=== PATIENT | male | born 1995 | race Two or more races ===

== ENCOUNTER 2018-02-22 17:21 | Emergency (ER) | payer MEDICAID, OTHER ==
[~2018-02-22] VITALS: Ht 177.8 cm; Wt 72.6 kg
[2018-02-22 17:34] VITALS: BP 111/75
[2018-02-22] MEDS ORDERED: Lidocaine 2% Visc 15ml soln ORAL ONE (18:00)
[2018-02-22] MEDS ORDERED: Mylanta II UD 30ml ORAL ONE (18:00)
[2018-02-22] MEDS ORDERED: Dicyclomine HCl 10mg/5ml oral soln ORAL ONE (18:00)
--- NOTE | 2018-02-22 18:51 | Emergency Room Report ---
History of Present Illness General Chief Complaint: Nausea, Vomiting, and Diarrhea Source: Patient Present Illness HPI 22 YO Male presents to the ED C/O 03/17 in severity abdominal pain cramping in nature with associated nausea, vomiting and diarrhea. He denies blood in the vomit or stools, he denies fevers, chills, or recent travel. Patient reports one ill contact at work. Denies dysuria, blood in the urine, denies tenderness to the abdomen.Denies CP, Palpitations, LOC, AMS, dizziness, Changes in Vision, Sensation, paresthesias, or a sudden severe headache. Allergies: Coded Allergies: No Known Allergies (Unverified , 02/22/18) Patient History Past Medical History: see triage record Past Surgical History: none Pertinent Family History: none Reviewed Nursing Documentation: PMH: Agreed; PSxH: Agreed Nursing Documentation-PMH Past Medical History: No Stated History Review of Systems All Other Systems: negative except mentioned in HPI Physical Exam Vital Signs Date Time Temp Pulse Resp B/P (MAP) Pulse Ox O2 Delivery O2 Flow Rate FiO2 02/22/18 17:25 98.0 89 20 110/75 96 Room Air 98.1 Sp02 EP Interpretation: reviewed, normal General Appearance: no apparent distress, alert, GCS 15, non-toxic Head: normocephalic, atraumatic Eyes: bilateral eye normal inspection, bilateral eye PERRL ENT: hearing grossly normal, normal voice Neck: full range of motion Respiratory: chest non-tender, lungs clear, normal breath sounds, speaking full sentences Cardiovascular #1: regular rate, rhythm, no edema Gastrointestinal: normal bowel sounds - hyperactive BS in all 4 quadrants., non tender, soft, non-distended, no guarding Rectal: deferred Genitourinary: normal inspection Musculoskeletal: back normal, gait/station normal, normal range of motion, non- tender Neurologic: alert, oriented x3, responsive, sensory intact, normal gait, speech normal, grossly normal Psychiatric: judgement/insight normal Skin: normal color, no rash, warm/dry, well hydrated Lymphatic: no adenopathy Medical Decision Making PA Attestation Dr. Rodriguez is my supervising Physician whom patient management has been discussed with. Diagnostic Impression: Primary Impression: Nausea, vomiting, and diarrhea Additional Impression: Hordeolum external Qualified Codes: H00.011 - Hordeolum externum right upper eyelid ER Course 22 YO Male presents to the ED C/O 03/17 in severity abdominal pain cramping in nature with associated nausea, vomiting and diarrhea. He denies blood in the vomit or stools, he denies fevers, chills, or recent travel. Patient reports one ill contact at work. Denies dysuria, blood in the urine, denies tenderness to the abdomen.Denies CP, Palpitations, LOC, AMS, dizziness, Changes in Vision, Sensation, paresthesias, or a sudden severe headache. Ddx considered but are not limited to GE, colitis, acute appy, SBO, Cyclical Vomiting secondary to THC just to name a few. Vital signs: pt. is afebrile, H&PE are most consistent with GE most likely viral in etiology, no evidence to suggest acute abdomen on physical exam. ORDERS: -None required at this time, the dx is clinical. ED INTERVENTIONS: -Zofran 4mg -GI Cocktail -Pepcid PO pt. able to keep down oral fluids. and reports his symptoms have resolved. Pt. given strict ED return precautions for worsening of his symptoms or new symptoms. DISCHARGE: At this time pt. is stable for d/c to home. Will provide printed patient care instructions, and any necessary prescriptions. Care plan and follow up instructions have been discussed with the patient prior to discharge. Last Vital Signs Date Time Temp Pulse Resp B/P (MAP) Pulse Ox O2 Delivery O2 Flow Rate FiO2 02/22/18 17:34 98.1 84 20 111/75 99 Room Air 98.1 Disposition: HOME, SELF-CARE Condition: Stable Scripts Mag Hydrox/Al Hydrox/Simeth (ALUM-MAG HYDROXIDE-SIMETH LIQ) 360 Ml Oral.susp 20 ML PO BID for 3 Days, #360 ML Prov: Xenia Upton P.A. 02/22/18 Ranitidine Hcl* (ZANTAC*) 150 Mg Tablet 150 MG ORAL TWICE A DAY for 5 Days, #10 TAB Prov: Xenia Upton P.A. 02/22/18 Dicyclomine Hcl* (DICYCLOMINE HCL*) 10 Mg Capsule 10 MG PO QID, #16 CAP Prov: Xenia Upton P.A. 02/22/18 Eyelid Cleanser Combination #3 (OCUSOFT LID SCRUB PLUS) 50 Ml Foam..ml. 1 APPLIC TP BID, #50 ML Prov: Xenia Upton 02/22/18 Erythromycin Base (ERYTHROMYCIN*) 3.5 Gm Oint...g. 1 APPLIC RIGHT EYE BID, #3.5 GM 0 Refills Prov: Xenia Upton 02/22/18 Ondansetron Odt* (ZOFRAN ODT*) 8 Mg Tab.rapdis 8 MG ORAL Q6H PRN for Nausea & Vomiting, #30 TAB Prov: Xenia Upton 02/22/18 Referrals: NON PHYSICIAN (PCP) Patient Instructions: Diarrhea, Adult, [id number], Food Choices to Help Relieve Diarrhea, Adult, Nausea and Vomiting, Adult, [id number] Additional Instructions: Take medications as directed. Follow up with a Primary Care Provider in 3-5 days, even if your symptoms have resolved. --Please review list of primary care clinics, if you do not already have a primary care provider Return sooner to ED if new symptoms occur, or current symptoms become worse. - Please note that this Emergency Department Report was dictated using OpenVPNammonium nitrate neutralizer technology software, occasionally this can lead to erroneous entry secondary to interpretation by the dictation equipment. Xenia Upton February 22, 2018 18:51
[2018-02-22] MEDS ORDERED: ERYTHROMYCIN3.5 GM RIGHT EYE (18:55)
[2018-02-22] MEDS ORDERED: DICYCLOMINE HCL10 MG PO (18:55)
[2018-02-22] MEDS ORDERED: ALUM-MAG HYDRO360 ML PO (18:55)
[2018-02-22] MEDS ORDERED: ZOFRAN ODT8 MG ORAL (18:55)
[2018-02-22] MEDS ORDERED: ZANTAC150 MG ORAL (18:55)
[2018-02-22] MEDS ORDERED: OCUSOFT LID SCR50 ML TP (18:55)
[2018-02-22 19:02] VITALS: BP 111/75
== END 2018-02-22 19:03 | disposition home or self-care (01) ==
LOC: EMR 18:14
DX: R11.2 Nausea with vomiting, unspecified (principal); R19.7 Diarrhea, unspecified; H00.011 Hordeolum externum right upper eyelid; R10.9 Unspecified abdominal pain
CPT/HCPCS: 99284